=== PATIENT | female | born 1985 | race Caucasian/White ===

== ENCOUNTER 2018-04-07 01:11 | Emergency (ER) | payer MEDICAID ==
[2018-04-07 01:14] VITALS: O2SAT 100
--- NOTE | 2018-04-07 01:42 | C.PDOC ---
History Of Present Illness 32 y/o F p/w dysuria, bilateral flank pain radiating to lower abdomen, frequent urination and urgency. Reports nausea. Denies fever, chills, vomiting. States feels similar to UTI in past. Denies , trauma, congenital kidney p roblem. Time Seen by Provider: 04/07/18 01:41 Chief Complaint (Nursing): Back Pain Past Medical History Vital Signs: Last Vital Signs Temp 98.0 F 04/07/18 01:13 Pulse 86 04/07/18 01:13 Resp 18 04/07/18 01:13 BP 130/87 04/07/18 01:13 Pulse Ox 100 04/07/18 01:13 - Medical History PMH: Anxiety, Asthma, Depression Denies: End Stage Renal Disease, Chronic Kidney Disease Family History: States: No Known Family Hx - Social History Hx Tobacco Use: No Hx Alcohol Use: No Hx Substance Use: No - Immunization History Hx Tetanus Toxoid Vaccination: Yes Hx Influenza Vaccination: No Hx Pneumococcal Vaccination: Yes Review Of Systems Except As Marked, All Systems Reviewed And Found Negative. Constitutional: Negative for: Fever Cardiovascular: Negative for: Chest Pain Physical Exam - Physical Exam Additional Physical Exam Comments: Constitutional: No acute distress. Head: Normocephalic. Atraumatic. Eyes: PERRL. ENT: Moist mucous membranes. Neck: Supple. Cardiovascular: Regular rate. Radial pulse 2+ bilaterally. Chest: No tenderness. Respiratory: Clear to auscultation bilaterally. GI: Soft. Suprapubic tenderness. Nondistended. Back: Bilateral CVA tenderness, R worse than L. Musculoskeletal: No tenderness or swelling of extremities. Skin: No rash. Neurologic: Alert, no focal deficit. ED Course And Treatment - Laboratory Results Result Diagrams: 04/07/18 02:08 04/07/18 02:08 O2 Sat by Pulse Oximetry: 100 Medical Decision Making Medical Decision Making: UA shows UTI. Patient comfortable after ED treatment. Discharged home, continue antibiotics, f/u PMD, return to ED for worsening pain, fever, vomiting, dyspnea. Disposition - Disposition Referrals: Fito Sunshine MD [Staff Provider] - Disposition: HOME/ ROUTINE Disposition Time: 03:26 Condition: STABLE Prescriptions: Ciprofloxacin [Cipro] 500 mg PO BID #14 tab Ibuprofen [Motrin] 1 tab PO Q6 #30 tab Ondansetron ODT [Zofran ODT] 4 mg PO Q8 #12 odt Phenazopyridine [Pyridium] 1 tab PO Q8 #6 tab Instructions: Kidney Infection, Urinary Tract Infection, Adult (DC) Forms: [facility] (Burkinan), Work Excuse - Clinical Impression Clinical Impression: UTI (urinary tract infection)
[2018-04-07] MEDS ORDERED: Sodium Chloride 0.9% 1,000 ML IV STA (01:51)
[2018-04-07 02:00] LABS: HCG,QUALITATIVE URINE NEGATIVE (NEGATIVE)
[2018-04-07 02:01] LABS: SQUAMOUS EPITHIAL 3 /hpf (0-5); URINE BACTERIA RARE (<OCC); URINE BILIRUBIN NEGATIVE (NEGATIVE); URINE CLARITY Clear (Clear); URINE COLOR Yellow (YELLOW); URINE GLUCOSE (UA) NORMAL (Normal); URINE LEUKOCYTE ESTERASE TRACE Leu/uL (Negative); URINE PROTEIN 1+ mg/dL (NEGATIVE); URINE UROBILINOGEN NORMAL mg/dL (0.2-1.0)
[2018-04-07 02:02] LABS: URINE BLOOD 2+ (NEGATIVE)
[2018-04-07] MEDS ORDERED: Ciprofloxacin 400mg/200ml D5W 400 MG/200 ML BAG IVPB STA (02:08)
[2018-04-07 02:11] LABS: BASO # 0.1 K/uL (0.0-0.2); BASO % 0.5 % (0.0-2.0); EOS # 0.2 K/uL (0.0-0.7); EOS % 1.7 % (0.0-4.0); LYMPH # 3.1 K/uL (1.0-4.3); MEAN CELL VOLUME 84.9 fL (81.0-99.0); MEAN CORPUSCULAR HEMOGLOBIN 29.7 pg (27.0-31.0); MEAN PLATELET VOLUME 7.4 fL (7.2-11.7); MONO # 0.9 K/uL (0.0-0.8); MONO % 7.6 % (0.0-10.0); NEUT # 7.6 K/uL (1.8-7.0); NEUT % 64.2 % (50.0-75.0); RBC 4.04 Mil/uL (3.80-5.20); RED CELL DISTRIBUTION WIDTH 13.5 % (11.5-14.5); WHITE BLOOD COUNT 11.9 K/uL (4.8-10.8)
[2018-04-07] MEDS ORDERED: Sodium Chloride 0.9% 1,000 ML ONE (02:11)
[2018-04-07 02:23] LABS: ALBUMIN 4.3 g/dL (3.5-5.0); BLOOD UREA NITROGEN 12 mg/dL (7-17); CALCIUM 9.4 mg/dl (8.6-10.4); GFR NON-AFRICAN AMERICAN > 60
[2018-04-07 02:24] LABS: ALB/GLOB RATIO 1.3 (1.0-2.1); ALT/SGPT 20 U/L (9-52); AST/SGOT 20 U/L (14-36)
[2018-04-07] MEDS ORDERED: Ciprofloxacin 400mg/200ml D5W 400 MG/200 ML BAG IVPB ONE (02:36)
[2018-04-07 04:07] VITALS: BP 109/67; PULSE 78; RESP 12; TEMP 98.1
== END 2018-04-07 04:14 | disposition home or self-care (01) ==
LOC: C.ER 01:11
DX: N39.0 Urinary tract infection, site not specified (principal)
CPT/HCPCS: 80053; 81001; 84703; 85025; 87086; 87181; 96365; 96375; 99285; J0744; J1885; J2405; J7030